=== PATIENT | male | born 2000 | race Caucasian/White ===

== ENCOUNTER 2018-05-18 18:13 | Emergency (ER) | payer OTHER, SELFPAY | END 2018-05-18 20:11 | disposition home or self-care (01) | LOC: ERS 18:13 | DX: J93.83 Other pneumothorax (principal) | CPT/HCPCS: 93005 ==

== ENCOUNTER 2018-05-19 12:44 | Emergency (ER) | payer OTHER ==
--- NOTE | 2018-05-19 14:27 | RAD ---
CHEST 2 VIEWS: COMPARISON: 05/18/2018. HISTORY: Right-sided pneumothorax. FINDINGS: Redemonstration of an essentially stable right-sided pneumothorax. No appreciable change in size. C urrently, the pneumothorax is noted at the level of the posterior right 3rd rib. No significant card iomediastinal shift. Stable aeration of the lung parenchyma. Stable cardiac silhouette. IMPRESSION: Essentially stable right-sided pneumothorax. POS: [facility]
== END 2018-05-19 14:44 | disposition home or self-care (01) ==
LOC: ERS 12:44
DX: J93.83 Other pneumothorax (principal)
CPT/HCPCS: 71046